=== PATIENT | male | born 1955 | race Caucasian/White ===

== ENCOUNTER 2017-02-22 08:03 | Emergency (ER) | payer OTHER ==
[~2017-02-22] VITALS: Ht 170.2 cm; Wt 120.2 kg
[~2017-02-22 08:03] MED LIST: CELEBREX200 M1 PO; CENTRUM SILVER1 EAC3 PO; FLUCELVAX SC; HYDROXYZINE HCL50 M1 PO; LIPITOR10 M1 PO; METFORMIN HCL500 M3 PO; OSTEO BI-FLEX1 EACH PO; PERCOCET 7.5-31 EACH PO; ZOFRAN 4 MG TABL4 MG PO
[2017-02-22 08:08] VITALS: BP 160/70
--- NOTE | 2017-02-22 08:16 | ED NECK/BACK PAIN COMPLAINT ---
History of Present Illness General Chief Complaint: Low Back Pain/Injury Stated Complaint: LOWER BACK PAIN Source: patient, old records Exam Limitations: no limitations Vital Signs & Intake/Output Vital Signs & Intake/Output Vital Signs Date Time Temp Pulse Resp B/P Pulse O2 O2 Flow FiO2 Ox Delivery Rate 02/22 0808 98.1 112 20 160/70 97 Room Air Allergies Coded Allergies: NO KNOWN ALLERGIES (12/01/11) Reconcile Medications Albuterol Sulfate (Proair Hfa) 90 MCG HFA.AER.AD 2 PUF INH Q4-6 PRN PRN SHORTNESS OF BREATH (Reported) Atorvastatin Calcium (Lipitor) 10 MG TABLET 1 TAB PO 1200 CHOLESTEROL ( Reported) Celecoxib (Celebrex) 200 MG CAPSULE 1 CAP PO DAILY PAIN (Reported) Cyclobenzaprine HCl 10 MG TABLET 1 TAB PO Q8P PAIN OR SPASM Glucosamine HCl/Chondr Wagner A Na (Osteo Bi-Flex Caplet) 250 MG-200 MG TABLET 1 TAB PO DAILY KNEE (Reported) Guaifenesin/Dextromethorphan (Mucinex Dm ER 1,200-60 MG Tab) 1,200 MG-60 MG TBMP.12HR 1 TAB PO BID COLD SYMPTOMS (Reported) Hydroxyzine HCl 50 MG TABLET 1 TAB PO DAILY PRN RASH (Reported) Loratadine (Claritin) 10 MG TABLET 1 TAB PO DAILY ALLERGIES (Reported) Meclizine HCl 25 MG TABLET 1 TAB PO TIDPRN PRN DIZZINESS (Reported) Metformin HCl 500 MG TABLET 2 TAB PO 1200 DIABETES (Reported) Multivit-Min/FA/Lycopen/Lutein (Centrum Silver Tablet) 0.4 MG-300 MCG-250 MCG TABLET 1 TAB PO DAILY SUPPLEMENT (Reported) Oxycodone HCl/Acetaminophen (Percocet 7.5-325 MG Tablet) 7.5 MG-325 MG TABLET 0.5 TAB PO DAILY PAIN (Reported) Pregabalin (Lyrica) 100 MG CAPSULE 1 CAP PO BID PRN PAIN (Reported) Triage Note: PT TO ED C/O LOW BACK PAIN SINCE FRIDAY. FELT "A TWINGE". DENIES ANY INJURY. HAS BEEN TAKING CELEBREX AND PERCOCET WITH NO RELIEF. Triage Nurses Notes Reviewed? yes HPI: On Friday the patient was walking when he felt a twinge in the right side of his lower back. Since then he has been having pain in the right side of his low back that radiates around to the front of his right thigh. Pain increases with movement. Pain decreases when he lays down on his fist. The pain then comes back whenever he rolls off his fist. Patient has tried Celebrex and Percocet without relief for the pain. There are no fevers or chills. There is no weakness or numbness. There is no incontinence of bowel or bladder. Patient states he uses a TENS unit at home and he gets transient relief. Past History Travel History Traveled to [place] past 21 day No Medical History Any Pertinent Medical History? see below for history Cardiovascular: hyperlipidemia Musculoskeletal: osteoarthritis, carpal tunnel Endocrine: diabetes Surgical History Surgical History: non-contributory Psychosocial History What is your primary language Austrian Tobacco Use: Never used ETOH Use: denies use Illicit Drug Use: denies illicit drug use Family History Hx Contributory? No Review of Systems Review of Systems Constitutional: Reports: no symptoms. Eyes: Reports: no symptoms. Ears, Nose, Throat, Mouth: Reports: no symptoms. Respiratory: Reports: no symptoms. Cardiovascular: Reports: no symptoms. Gastrointestinal/Abdominal: Reports: no symptoms. Musculoskeletal: Reports: see HPI, back pain. Skin: Reports: no symptoms. Neurological/Psychological: Reports: no symptoms. All Other Systems: Reviewed and Negative Physical Exam Physical Exam General Appearance: well developed/nourished, alert, awake Head: atraumatic Eyes: Bilateral: PERRL, EOMI. Neck: normal inspection, supple, no midline tenderness Respiratory: normal breath sounds, chest non-tender, no respiratory distress, lungs clear Cardiovascular: regular rate/rhythm, normal peripheral pulses Gastrointestinal: normal bowel sounds, soft, non-tender, no organomegaly Back: normal inspection, normal range of motion, muscle spasm, no vertebral tenderness Extremities: non-tender, normal range of motion Straight Leg Raising: Right: Negative. Left: Negative. Neurologic/Psych: no motor/sensory deficits, awake, alert, oriented x 3, normal gait, normal mood/affect Progress Differential Diagnosis: herniated disc, myofascial strain, sciatica Plan of Care: MUSCLE RELAXERS, MOIST HEAT, FOLLOW UP WITH YOUR DOCTOR Departure Departure Disposition: HOME OR SELF CARE Condition: Stable Clinical Impression Primary Impression: Back pain Qualifiers: Back pain location: low back pain Chronicity: acute Back pain laterality: right Sciatica presence: without sciatica Qualified Code: M54.5 - Low back pain Referrals: KENNETH MASON,DAVID Cullen (PCP/Family) Additional Instructions: USE MOIST HEAT TAKE MUSCLE RELAXERS DIRECTED IF NEEDED FOLLOW UP WITH YOUR DOCTOR RETURN FOR ANY CONCERNS Departure Forms: Customer Survey General Discharge Information Prescriptions: Current Visit Scripts Cyclobenzaprine HCl 1 TAB PO Q8P #20 TAB
[2017-02-22] MEDS ORDERED: MECLIZINE HCL25 MG PO (08:29)
[2017-02-22] MEDS ORDERED: CLARITIN10 M1 PO (08:29)
[2017-02-22] MEDS ORDERED: LYRICA100 M1 PO (08:29)
[2017-02-22] MEDS ORDERED: MUCINEX DM ER1 EACH PO (08:30)
[2017-02-22] MEDS ORDERED: PROAIR HFA8.5 GM INH (08:31)
[2017-02-22] MEDS ORDERED: CYCLOBENZAPRINE10 M1 PO (08:44)
== END 2017-02-22 08:49 ==
LOC: ERH 08:03
DX: M54.5 Low back pain (principal)

== ENCOUNTER 2018-01-18 08:41 | Emergency (ER) | payer OTHER ==
[~2018-01-18] VITALS: Ht 167.6 cm; Wt 113.4 kg
[~2018-01-18 08:41] MED LIST changes: +CLARITIN10 M1 PO; +CYCLOBENZAPRINE10 M1 PO; +LYRICA100 M1 PO; +MECLIZINE HCL25 MG PO; +MUCINEX DM ER1 EACH PO; +PROAIR HFA8.5 GM INH
--- NOTE | 2018-01-18 09:13 | ED HAND/WRIST INJURY COMPLAINT ---
History of Present Illness General Chief Complaint: Hand or Wrist Injury Stated Complaint: RIGHT WRIST PAIN X 3-4 DAYS Source: patient, old records Exam Limitations: no limitations Vital Signs & Intake/Output Vital Signs & Intake/Output Vital Signs Date Time Temp Pulse Resp B/P B/P Pulse O2 O2 Flow FiO2 Mean Ox Delivery Rate 01/18 1017 98.0 74 18 139/76 99 Room Air 01/18 0845 97.4 80 18 146/87 95 Room Air Allergies Coded Allergies: NO KNOWN ALLERGIES (12/01/11) Reconcile Medications Albuterol Sulfate (Proair Hfa) 90 MCG HFA.AER.AD 2 PUF INH Q4-6 PRN PRN SHORTNESS OF BREATH (Reported) Atorvastatin Calcium (Lipitor) 10 MG TABLET 1 TAB PO 1200 CHOLESTEROL ( Reported) Celecoxib (Celebrex) 200 MG CAPSULE 1 CAP PO DAILY PAIN (Reported) Cyclobenzaprine HCl 10 MG TABLET 1 TAB PO Q8P PAIN OR SPASM Glucosamine HCl/Chondr Wagner A Na (Osteo Bi-Flex Caplet) 250 MG-200 MG TABLET 1 TAB PO DAILY KNEE (Reported) Guaifenesin/Dextromethorphan (Mucinex Dm ER 1,200-60 MG Tab) 1,200 MG-60 MG TBMP.12HR 1 TAB PO BID COLD SYMPTOMS (Reported) Hydroxyzine Hydrochloride (Atarax) 50 MG TABLET 1 TAB PO DAILY PRN RASH ( Reported) Loratadine (Claritin) 10 MG TABLET 1 TAB PO DAILY ALLERGIES (Reported) Meclizine HCl 25 MG TABLET 1 TAB PO TIDPRN PRN DIZZINESS (Reported) Metformin HCl 500 MG TABLET 2 TAB PO 1200 DIABETES (Reported) Multivit-Min/FA/Lycopen/Lutein (Centrum Silver Tablet) 0.4 MG-300 MCG-250 MCG TABLET 1 TAB PO DAILY SUPPLEMENT (Reported) Oxycodone HCl/Acetaminophen (Percocet 7.5-325 MG Tablet) 7.5 MG-325 MG TABLET 0.5 TAB PO DAILY PAIN (Reported) Oxycodone HCl/Acetaminophen (Percocet 5-325 MG Tablet) 5 MG-325 MG TABLET 1 TAB PO BID PRN pain Pregabalin (Lyrica) 100 MG CAPSULE 1 CAP PO BID PRN PAIN (Reported) Triage Note: PT STATES THAT HE HAS BEEN HAVING R WRIST PAIN THAT STARTED AFTER SHOVELING A FEW DAYS AGO. PT HAS HISTORY OF CARPAL TUNNEL. DENIES INJURY. DECLINES MEDS AT TRIAGE Triage Nurses Notes Reviewed? yes Occurred: last week Duration: day(s): (3), constant Timing: recent history Injury Environment: home Severity: moderate Severity Numbers: 5 Pain/Injury Location: Right: Wrist. Method of Injury: unknown Modifying Factors: Improves With: rest. Worsens With: movement. Associated Symptoms: none HPI: 62-year-old male with history of carpal tunnel, previous right wrist fracture presents complaining of a 3 day history of right wrist pain worse with range of motion that came on after he was shoveling. He denies any fall or trauma specifically to his wrist. There is no radiation of the pain, no hand finger forearm or elbow pain no numbness or tingling. He's been taking Celebrex and Tylenol with no improvement. He denies any overlying rashes to his skin (Blayne Andrade) Past History Travel History Traveled to [place] past 21 day No Medical History Any Pertinent Medical History? see below for history Neurological: NONE EENT: NONE Cardiovascular: hyperlipidemia Respiratory: NONE Gastrointestinal: NONE Hepatic: NONE Renal: NONE Musculoskeletal: osteoarthritis, carpal tunnel Psychiatric: NONE Endocrine: diabetes Blood Disorders: NONE Cancer(s): NONE Surgical History Surgical History: non-contributory Psychosocial History What is your primary language Iranian Tobacco Use: Never used ETOH Use: denies use Illicit Drug Use: denies illicit drug use Family History Hx Contributory? No (Blayne Andrade) Review of Systems Review of Systems Constitutional: Reports: see HPI. Comments Review of systems: See HPI, All other systems negative. Constitutional, no chills no fever, HEENT: no sore throat no congestion Cardiovascular: No chest pain Skin: no rashes, no change in skin Respiratory: no cough GI: No nausea no vomiting Muscle skeletal: joint pain, no back pain, no neck pain, Neurologic: , no headache Heme/endocrine: No bruising (Blayne Andrade) Physical Exam Physical Exam General Appearance: well developed/nourished, no apparent distress, alert, awake Hand Left: normal inspection, normal range of motion Hand Right: tender Comments: Well-developed well-nourished patient in no apparent distress. HEENT: Atraumatic, extraocular motion intact Neck: Supple, FROM Back: FROM Respiratory: No respiratory distress. Patient speaking in full complete sentences Shoulder: Atraumatic/Stable. FROM . Elbow: Atraumatic/stable. FROM. No laxity Upper arm/Forearm: Atraumatic. Nontender. No edema, 5 out of 5 practice support specialist strength noted to bilateral upper extremities Hand/Wrist: Atraumatic/stable. Skin intact. Limited range of motion secondary to pain and tenderness to palpation over the dorsal lateral radial aspect right wrist no swelling no ecchymosis no erythema or warmth Pulses: Normal/equal radial pulses bilaterally. Brisk cap refill Lower Extremities: full range of motion Neuro: awake, alert, and oriented to person, place and time. There were no obvious focal neurologic abnormalities. Skin: Warm & dry;No appreciable rash on exposed skin Psych: Mood affect normal, normal memory normal judgment. (Angel THOMASON,Blayne) Progress Differential Diagnosis: contusion, compartment syndrome, dislocation, fracture, septic arthritis, sprain, tendinitis, arthritis Plan of Care: Orders Procedure Date/time Status Durable Medical Equipment 01/18 946 Active xray ordered. i d/w the pt his xray results, right wrist cock-up brace applied. i advised close f/u with his pmd and ortho info provided. advised rice, return precautions were discussed at length. cleared for dc Diagnostic Imaging: Viewed by Me: Radiology Read. Discussed w/RAD: Radiology Read. Radiology Impression: PATIENT: LATA ROCHA PRESENT AGE: 62 PATIENT ACCOUNT NO: [id number] : 57 LOCATION: [facility] ORDERING PHYSICIAN: Blayne THOMASON SERVICE DATE: 01/18/18 EXAM TYPE: RAD - XRY- WRIST COMPLETE-RIGHT EXAMINATION: XR WRIST, RIGHT CLINICAL INFORMATION: Pain in right wrist after shoveling. COMPARISON: None TECHNIQUE: PA, lateral, and oblique views of the right wrist. FINDINGS: There is widening of the scapholunate interval consistent with carpal instability. Mild degenerative changes at the radiocarpal joint with subchondral sclerosis of the radial styloid an adjacent scaphoid. Mild joint space narrowing. Mild degenerative changes at the articulation of the scaphoid with the trapezium and between the articulation of the trapezium with the first metacarpal. No acute abnormality. IMPRESSION: Scapholunate widening consistent with carpal instability. Mild degenerative changes. No acute abnormality. DICTATED BY: Jigar Addison MD DATE/TIME DICTATED:01/18/18949 LICENSED MENTAL HEALTH PROFESSIONAL:EVER DATE/TIME TRANSCRIBED:01/18/18949 CONFIDENTIAL, DO NOT COPY WITHOUT APPROPRIATE AUTHORIZATION. <Electronically signed in Other Vendor System> SIGNED BY: Jigar Addison MD 01/18/18 1001 (Blayne Andrade) Departure Departure Disposition: HOME OR SELF CARE Condition: Stable Clinical Impression Primary Impression: Right wrist sprain Referrals: Monty MASON,Neo Pearson MD,Felix Cullen (PCP/Family) Additional Instructions: Rest, ice, tylenol/motrin for pain. Percocet for breakthrough pain- use caution as this is a narcotic and highly addictive. no driving or drinking alcohol while taking. brace at all times. Follow up with orthopedist dr montoya this week as well as your pmd. return with any concerns Departure Forms: Customer Survey General Discharge Information Prescriptions: Current Visit Scripts Oxycodone HCl/Acetaminophen (Percocet 5-325 MG Tablet) 1 TAB PO BID PRN pain #10 TAB (Blayne Andrade) PA/FINISHING MACHINE OPERATOR Co-Sign Statement Statement: ED Attending supervision documentation- [] I saw and evaluated the patient. I have also reviewed all the pertinent lab results and diagnostic results. I agree with the findings and the plan of care as documented in the PA's/FINISHING MACHINE OPERATOR's documentation. [X] I have reviewed the ED Record and agree with the PA's/FINISHING MACHINE OPERATOR's documentation. [] Additions or exceptions (if any) to the PAs/FINISHING MACHINE OPERATOR's note and plan are summarized below: [] (Inga MASON,Rufino Cullen)
[2018-01-18] MEDS ORDERED: PERCOCET 5-3251 EACH PO (09:56)
--- NOTE | 2018-01-18 10:01 | RADIOLOGY REPORT ---
EXAMINATION: XR WRIST, RIGHT CLINICAL INFORMATION: Pain in right wrist after shoveling. COMPARISON: None TECHNIQUE: PA, lateral, and oblique views of the right wrist. FINDINGS: There is widening of the scapholunate interval consistent with carpal instability. Mild degenerative changes at the radiocarpal joint with subchondral sclerosis of the radial styloid an adjacent scaphoid. Mild joint space narrowing. Mild degenerative changes at the articulation of the scaphoid with the trapezium and between the articulation of the trapezium with the first metacarpal. No acute abnormality. IMPRESSION: Scapholunate widening consistent with carpal instability. Mild degenerative changes. No acute abnormality.
[2018-01-18 10:17] VITALS: BP 139/76
== END 2018-01-18 10:17 ==
LOC: ERH 08:41
DX: S63.501A Unspecified sprain of right wrist, initial encounter (principal); X50.9XXA Other and unspecified overexertion or strenuous movements or postures, initial encounter; Y93.H1 Activity, digging, shoveling and raking; Y92.009 Unspecified place in unspecified non-institutional (private) residence as the place of occurrence of the external cause
CPT/HCPCS: 73110-RT